=== PATIENT | male | born 1930 | race Caucasian/White ===

== ENCOUNTER 2020-02-08 19:53 | Observation (INO) | payer OTHER ==
--- NOTE | 2020-02-08 20:46 | RAD REPORT ---
EXAM DESCRIPTION: [place] Single View02/08/2020 8:41 pm CLINICAL HISTORY: cough COMPARISON: 2014 FINDINGS: The lungs appear clear of acute infiltrate. The heart is normal size IMPRESSION: No acute abnormalities displayed
[2020-02-08] MEDS ORDERED: NA CHLORIDE 0.9% 1,000 ML ONE (20:55)
[2020-02-08] MEDS ORDERED: AZITHROMYCIN 500 MG INJ IVPB ONE (20:55)
[2020-02-08] MEDS ORDERED: CEFTRIAXONE/SWI 1gm 1 GM/10 ML SYR ONE (20:55)
[2020-02-08] MEDS ORDERED: NA CHLORIDE 0.9% 250 ML ONE (20:55)
[2020-02-08 21:31] LABS: Absolute Lymphocytes (CBC) 2.3 K/uL (0.7-4.9); Basophils % 0.3 % (0-1.3); Hematocrit 51.9 % (39.6-49.0); Lymphocytes % 21.8 % (15.3-44.8); MPV 7.8 fL (7.6-11.3); RBC Red Blood Cell Count 5.74 M/uL (4.33-5.43)
[2020-02-08 21:33] LABS: Protime INR 2.04
[2020-02-08] MEDS ORDERED: METHYLPREDNISOLONE 125 MG INJ ONE (21:42)
[2020-02-08] MEDS ORDERED: METOPROLOL TAR 50 MG TAB ONE (21:43)
[2020-02-08] MEDS ORDERED: MORPHINE 2 MG/ML SYR ONE (21:43)
[2020-02-08] MEDS ORDERED: ONDANSETRON 4 MG/2 ML VIAL ONE (21:43)
[2020-02-08] MEDS ORDERED: FAMOTIDINE 20 MG/2 ML VIAL IV ONE (21:44)
[2020-02-08 21:45] LABS: ALT/SGPT 25 U/L (12-78); AST/SGOT 31 U/L (15-37); Albumin 3.9 g/dL (3.4-5.0); Alkaline Phosphatase 42 U/L (45-117); BUN Blood Urea Nitrogen 18 mg/dL (7-18); Bicarbonate 25 mmol/L (21-32); Bilirubin Direct 0.1 mg/dL (0-0.2); Bilirubin Total 0.5 mg/dL (0.2-1.0); Glucose Level 126 mg/dL (74-106); Lipase 207 U/L (73-393); Magnesium 2.3 mg/dL (1.8-2.4); NT PRO-BNP 436 pg/mL (<450); Protein, Total 8.5 g/dL (6.4-8.2); Sodium Level 139 mmol/L (136-145); Troponin (Emerg Dept Use Only) < 0.02 ng/mL (0.0-0.045)
[2020-02-08] MEDS ORDERED: ALBUTEROL INHALER 60 PUFF/8 GM IH ONE (21:46)
--- NOTE | 2020-02-08 22:19 | ER ---
Nurse's Notes [facility] Name: Khai Posada Age: 89 yrs Sex: Male : 1930 Arrival Date: 02/08/2020 Time: 19:56 Bed 7 Private MD: Hernan Merino V Diagnosis: Dyspnea;Other chest pain;Atrial fibrillation and flutter;Acute upper respiratory infection, unspecified;Fever, unspecified;Cholelithiasis Presentation: 02/07 20:00 Chief complaint: Patient states: I have been having cold sweats, cough and congestion jb4 with yellow mucus coming up, and chest discomfort for the past several days. Today it felt like my A-Fib started acting up again. I wanted to come in though to see if my lungs were okay. My had the same thing and she is just now getting over it. 20:00 Coronavirus screen: Patient reports a subjective fever or greater than 100.4F, or jb4 cough, or shortness of breath, or difficulty breathing. Surgical mask placed on patient. Patient moved to private room, placed in contact and droplet isolation with eye protection until further assessment. Patient denies travel on a cruise ship or to a country the [facility] currently lists as an affected area. Patient denies contact with known and/or suspected case of COVID-19. Infection Prevention Nurse has been notified of patient in isolation for probable COVID-19. Ebola Screen: No symptoms or risks identified at this time. Initial Sepsis Screen: Does the patient meet any 2 criteria? No. Patient's initial sepsis screen is negative. Does the patient have a suspected source of infection? Yes: Productive cough/pneumonia. Risk Assessment: Do you want to hurt yourself or someone else? Patient reports no desire to harm self or others. 20:00 Method Of Arrival: Wheelchair jb4 20:00 Acuity: BLANCA 3 jb4 Historical: - Allergies: 20:00 NKDA; jb4 - Home Meds: 20:00 Xarelto oral oral [Active]; Crestor oral oral [Active]; jb4 - PMHx: 20:00 seasonal allergies; High Cholesterol; Atrial Fib; jb4 - PSHx: 20:00 Cardiac ablasion; jb4 - Immunization history:: Adult Immunizations up to date. - Social history:: Smoking status: Patient denies any tobacco usage or history of. Patient/guardian denies using alcohol, street drugs, Smoking status: Patient denies any tobacco usage or history of. - Family history:: not pertinent. Screenin:25 Abuse screen: Denies threats or abuse. Denies injuries from another. Nutritional rv screening: No deficits noted. Tuberculosis screening: No symptoms or risk factors identified. Fall Risk None identified. Assessment: 20:23 General: Appears in no apparent distress. comfortable, Behavior is calm, cooperative. rv Pain: Complains of pain in chest. Neuro: Level of Consciousness is awake, alert, obeys commands, Oriented to person, place, time, situation. Cardiovascular: Patient's skin is warm and dry. Rhythm is atrial fibrillation. Respiratory: Airway is patent Breath sounds are coarse bilaterally. in left posterior lower lobe, right posterior middle lobe and right posterior lower lobe. GI: Abdomen is flat. : No signs and/or symptoms were reported regarding the genitourinary system. EENT: No signs and/or symptoms were reported regarding the EENT system. Derm: Skin is intact. Musculoskeletal: No signs and/or symptoms reported regarding the musculoskeletal system. 21:30 Reassessment: Patient appears in no apparent distress at this time. Patient and/or jb4 family updated on plan of care and expected duration. Pain level reassessed. Patient is alert, oriented x 3, equal unlabored respirations, skin warm/dry/pink. 22:00 Reassessment: Patient appears in no apparent distress at this time. Patient and/or jb4 family updated on plan of care and expected duration. Pain level reassessed. Patient is alert, oriented x 3, equal unlabored respirations, skin warm/dry/pink. Respiratory: Airway is patent Respiratory effort is even, unlabored, Respiratory pattern is regular, symmetrical, Breath sounds are diminished bilaterally. Breath sounds with wheezes bilaterally. Vital Signs: 20:00 BP 155 / 106; Pulse 76; Resp 16; Temp 97.8(O); Pulse Ox 98% on R/A; Weight 90.72 kg jb4 (R); Height 5 ft. 8 in. (172.72 cm) (R); Pain 2/10; 21:15 BP 134 / 73; Pulse 72; Resp 12; Pulse Ox 97% on R/A; rv 21:30 BP 127 / 82; Pulse 72; Resp 14; Pulse Ox 96% on R/A; rv 21:45 BP 143 / 75; Pulse 62; Resp 25; Pulse Ox 97% on R/A; rv 22:00 BP 147 / 72; Pulse 70; Resp 19; Pulse Ox 98% on R/A; rv 22:00 Temp 97.5(O); jb4 20:00 Body Mass Index 30.41 (90.72 kg, 172.72 cm) jb4 ED Course: 19:56 Patient arrived in ED. es 19:56 Hernan Merino MD is Private Physician. es 20:04 Jayro Booker, IGNACIO is Primary Nurse. rv 20:08 Doroteo Dunbar MD is Attending Physician. rama 20:24 Triage completed. jb4 20:26 Arm band placed on right wrist. EKG completed in triage. Results shown to MD. rv 20:26 Patient has correct armband on for positive identification. Placed in gown. Bed in low rv position. Call light in reach. Side rails up X 1. campus monitor on. Pulse ox on. NIBP on. 20:41 XRAY Chest (1 view) In Process Unspecified. EDMS 21:10 Inserted saline lock: 20 gauge in left forearm, using aseptic technique. Blood ds4 collected. Missed attempt(s): 22 gauge in right antecubital area. Bleeding controlled, band aid applied, catheter tip intact. 21:39 Blood Culture Adult (2) Sent. ds4 21:40 Basic Metabolic Panel Sent. ds4 21:40 LFT's Sent. ds4 21:40 Magnesium Sent. ds4 21:40 NT PRO-BNP Sent. ds4 21:40 Troponin (emerg Dept Use Only) Sent. ds4 22:16 Hernan Merino MD is Hospitalizing Provider. rama 22:19 US Abdomen Limited In Process Unspecified. EDMS 22:22 Ultrasound completed. Patient tolerated well. Notified ED Physician . sg3 22:56 Unruly Coppola, RN is Primary Nurse. jb4 02/08 12:05 Health Dept notified COVID test sent to lab/ PUI # [id number]/ lab notified. eb Administered Medications: 02/07 20:24 CANCELLED (Duplicate Order): Aspirin 81 mg PO once rama 21:10 Drug: NS 0.9% 500 ml Route: IV; Rate: bolus; Site: right antecubital; jb4 21:11 Drug: Rocephin 1 grams Route: IV; Rate: per protocol; Site: right antecubital; jb4 21:14 Follow up: IV Status: Completed infusion; IV Intake: 10ml jb4 21:15 Drug: Zithromax 500 mg Route: IVPB; Infused Over: 1 hrs; Site: right antecubital; jb4 21:46 Not Given (Physician Discretion): AtroVENT Aerosol 0.5 mg Inhalation once jb4 21:47 Not Given (Physician Discretion): Xopenex 2.5 mg Inhalation once jb4 21:57 Drug: Lopressor (metoprolol TARTRATE) 50 mg Route: PO; jb4 21:57 Drug: Pepcid 20 mg Route: IVP; Site: right antecubital; jb4 21:58 Drug: NS 0.9% 1000 ml Route: IV; Rate: 125 ml/hr; Site: right antecubital; jb4 21:58 Drug: SOLU-Medrol 125 mg Route: IVP; Site: right antecubital; jb4 22:00 Drug: Albuterol HFA Inhaler 2 puffs Route: Inhalation; jb4 22:03 Not Given (Patient Refused): morphine 2 mg IVP once; RASS on ADMIN: Combtv4, Very jb4 Agttd3, Agttd2, Rstlss1, AlertClm0, Drwsy-1, Lt Sdtn-2, Mod Sdtn-3, Dp Sdtn-4, UnArsble-5 22:03 Not Given (Patient Refused): Zofran (Ondansetron) 4 mg IVP once; over 2 minutes jb4 Intake: 21:14 IV: 10ml; Total: 10ml. jb4 Outcome: 22:18 Decision to Hospitalize [facility] 23:26 Patient left the ED. mw2 Signatures: Dispatcher [employer] Doroteo Decker MD MD cha Salyer, Edna es Swanson, Donovan ds4 Unruly Coppola, RN RN jb4 Abby Fitzgerald3 Suman Ansari mw2 Jane Ward Ronaldo RN RN rv
--- NOTE | 2020-02-08 22:20 | EDPHYS ---
Physician Documentation [facility] Name: Khai Posada Age: 89 yrs Sex: Male : 1930 Arrival Date: 02/08/2020 Time: 19:56 Bed 7 Private MD: Hernan Merino V ED Physician Doroteo Dunbar HPI: 02/07 20:25 This 89 yrs old Male presents to ER via Wheelchair with complaints of Chest rama Congestion, Cold sweats. 20:25 The patient or guardian reports chest pain that is located primarily in the anterior rama chest wall. Onset: 3 day(s) ago. The patient or guardian reports cough, difficulty breathing, flu symptoms, arthralgias, low-grade fever, myalgias. Onset: The symptoms/episode began/occurred 3 day(s) ago. Modifying factors: The symptoms are alleviated by nothing. the symptoms are aggravated by activity. Severity of symptoms: At their worst the symptoms were mild, in the emergency department the symptoms are actually worse, mildly. Associated signs and symptoms: Pertinent positives: rhinorrhea. Modifying factors: The symptoms are alleviated by nothing, the symptoms are aggravated by nothing. Historical: - Allergies: 20:00 NKDA; jb4 - Home Meds: 20:00 Xarelto oral oral [Active]; Crestor oral oral [Active]; jb4 - PMHx: 20:00 seasonal allergies; High Cholesterol; Atrial Fib; jb4 - PSHx: 20:00 Cardiac ablasion; jb4 - Immunization history:: Adult Immunizations up to date. - Social history:: Smoking status: Patient denies any tobacco usage or history of. Patient/guardian denies using alcohol, street drugs, Smoking status: Patient denies any tobacco usage or history of. - Family history:: not pertinent. ROS: 20:25 Eyes: Negative for injury, pain, redness, and discharge, ENT: Negative for injury, rama pain, and discharge, Neck: Negative for injury, pain, and swelling, Cardiovascular: Negative for chest pain, palpitations, and edema, Abdomen/GI: Negative for abdominal pain, nausea, vomiting, diarrhea, and constipation, Back: Negative for injury and pain, : Negative for injury, bleeding, discharge, and swelling, MS/Extremity: Negative for injury and deformity, Skin: Negative for injury, rash, and discoloration, Neuro: Negative for headache, weakness, numbness, tingling, and seizure, Psych: Negative for depression, anxiety, suicide ideation, homicidal ideation, and hallucinations, Allergy/Immunology: Negative for hives, rash, and allergies, Endocrine: Negative for neck swelling, polydipsia, polyuria, polyphagia, and marked weight changes, Hematologic/Lymphatic: Negative for swollen nodes, abnormal bleeding, and unusual bruising. 20:25 Constitutional: Positive for body aches, chills, fever, malaise. 20:25 Cardiovascular: Positive for chest pain, of the chest. 20:25 Respiratory: Positive for cough, wheezing, expiratory. Exam: 20:25 Constitutional: This is a well developed, well nourished patient who is awake, alert, rama and in no acute distress. Head/Face: Normocephalic, atraumatic. Eyes: Pupils equal round and reactive to light, extra-ocular motions intact. Lids and lashes normal. Conjunctiva and sclera are non-icteric and not injected. Cornea within normal limits. Periorbital areas with no swelling, redness, or edema. ENT: Nares patent. No nasal discharge, no septal abnormalities noted. Tympanic membranes are normal and external auditory canals are clear. Oropharynx with no redness, swelling, or masses, exudates, or evidence of obstruction, uvula midline. Mucous membranes moist. Neck: Trachea midline, no thyromegaly or masses palpated, and no cervical lymphadenopathy. Supple, full range of motion without nuchal rigidity, or vertebral point tenderness. No Meningismus. Chest/axilla: Normal chest wall appearance and motion. Nontender with no deformity. No lesions are appreciated. Abdomen/GI: Soft, non-tender, with normal bowel sounds. No distension or tympany. No guarding or rebound. No evidence of tenderness throughout. Back: No spinal tenderness. No costovertebral tenderness. Full range of motion. Male : Normal genitalia with no discharge or lesions. Skin: Warm, dry with normal turgor. Normal color with no rashes, no lesions, and no evidence of cellulitis. MS/ Extremity: Pulses equal, no cyanosis. Neurovascular intact. Full, normal range of motion. Neuro: Awake and alert, GCS 15, oriented to person, place, time, and situation. Cranial nerves II-XII grossly intact. Motor strength 5/5 in all extremities. Sensory grossly intact. Cerebellar exam normal. Normal gait. Psych: Awake, alert, with orientation to person, place and time. Behavior, mood, and affect are within normal limits. 20:25 Cardiovascular: Rate: normal, Rhythm: irregularly irregular, Pulses: Pulses are 4+ in bilateral radial, brachial, femoral, popliteal, posterior tibial and and dorsalis pedis arteries.. Heart sounds: normal, Edema: is not appreciated, JVD: is not appreciated. Vital Signs: 20:00 BP 155 / 106; Pulse 76; Resp 16; Temp 97.8(O); Pulse Ox 98% on R/A; Weight 90.72 kg jb4 (R); Height 5 ft. 8 in. (172.72 cm) (R); Pain 2/10; 21:15 BP 134 / 73; Pulse 72; Resp 12; Pulse Ox 97% on R/A; rv 21:30 BP 127 / 82; Pulse 72; Resp 14; Pulse Ox 96% on R/A; rv 21:45 BP 143 / 75; Pulse 62; Resp 25; Pulse Ox 97% on R/A; rv 22:00 BP 147 / 72; Pulse 70; Resp 19; Pulse Ox 98% on R/A; rv 22:00 Temp 97.5(O); jb4 20:00 Body Mass Index 30.41 (90.72 kg, 172.72 cm) jb4 MDM: 20:08 Patient medically screened. [facility] 20:27 Data reviewed: vital signs, nurses notes, lab test result(s), EKG, radiologic studies, rama plain films. 02/07 20:24 Order name: Basic Metabolic Panel; Complete Time: 22: [facility] 02/07 20:24 Order name: CBC with Diff; Complete Time: 22: [facility] 02/07 20:24 Order name: LFT's; Complete Time: 22: [facility] 02/07 20:24 Order name: Magnesium; Complete Time: 22: [facility] 02/07 20:24 Order name: NT PRO-BNP; Complete Time: 22: [facility] 02/07 20:24 Order name: PT-INR; Complete Time: 22: [facility] 02/07 20:24 Order name: Troponin (emerg Dept Use Only); Complete Time: 22: [facility] 02/07 20:24 Order name: XRAY Chest (1 view); Complete Time: 21: [facility] 02/07 20:24 Order name: Blood Culture Adult (2) [facility] 02/07 20:24 Order name: Influenza Screen (a \T\ B); Complete Time: 21: [facility] 02/07 20:24 Order name: Lipase; Complete Time: 22:09 [facility] 02/07 20:24 Order name: Lactate; Complete Time: 22: [facility] 02/07 20:24 Order name: Misc. Lab Test [facility] 02/07 21:26 Order name: US Abdomen Limited [facility] 02/07 20:24 Order name: EKG; Complete Time: 20: [facility] 02/07 20:24 Order name: Cardiac monitoring; Complete Time: : [facility] 02/07 20:24 Order name: EKG - Nurse/Tech; Complete Time: 21:33 [facility] 02/07 20:24 Order name: IV Saline Lock; Complete Time: : [facility] 02/07 20:24 Order name: Labs collected and sent; Complete Time: : [facility] 02/07 20:24 Order name: O2 Per Protocol; Complete Time: : [facility] 02/07 20:24 Order name: O2 Sat Monitoring; Complete Time: 21: [facility] 02/07 20:24 Order name: consult Order-Health dept [facility] Administered Medications: 20:24 CANCELLED (Duplicate Order): Aspirin 81 mg PO once [facility] 21:10 Drug: NS 0.9% 500 ml Route: IV; Rate: bolus; Site: right antecubital; jb4 21:11 Drug: Rocephin 1 grams Route: IV; Rate: per protocol; Site: right antecubital; jb4 21:14 Follow up: IV Status: Completed infusion; IV Intake: 10ml jb4 21:15 Drug: Zithromax 500 mg Route: IVPB; Infused Over: 1 hrs; Site: right antecubital; jb4 21:46 Not Given (Physician Discretion): AtroVENT Aerosol 0.5 mg Inhalation once jb4 21:47 Not Given (Physician Discretion): Xopenex 2.5 mg Inhalation once jb4 21:57 Drug: Lopressor (metoprolol TARTRATE) 50 mg Route: PO; jb4 21:57 Drug: Pepcid 20 mg Route: IVP; Site: right antecubital; jb4 21:58 Drug: NS 0.9% 1000 ml Route: IV; Rate: 125 ml/hr; Site: right antecubital; jb4 21:58 Drug: SOLU-Medrol 125 mg Route: IVP; Site: right antecubital; jb4 22:00 Drug: Albuterol HFA Inhaler 2 puffs Route: Inhalation; jb4 22:03 Not Given (Patient Refused): morphine 2 mg IVP once; RASS on ADMIN: Combtv4, Very jb4 Agttd3, Agttd2, Rstlss1, AlertClm0, Drwsy-1, Lt Sdtn-2, Mod Sdtn-3, Dp Sdtn-4, UnArsble-5 22:03 Not Given (Patient Refused): Zofran (Ondansetron) 4 mg IVP once; over 2 minutes jb4 Disposition: 02/08/20 22:18 Hospitalization ordered by Hernan Merino for Inpatient Admission. Preliminary diagnosis are Dyspnea, Other chest pain, Atrial fibrillation and flutter, Acute upper respiratory infection, unspecified, Fever, unspecified, Cholelithiasis. - Bed requested for Telemetry/MedSurg (Inpatient). - Status is Inpatient Admission. mw2 - Condition is Fair. - Problem is new. - Symptoms have improved. Signatures: Dispatcher [employer] EDMS Doroteo Dunbar MD MD cha Garcia, Cindy, RN RN Unruly Coppola RN RN jb4 Suman Ansari mw2 Jayro Booker RN RN rv Corrections: (The following items were deleted from the chart) 20:24 20:24 Aspirin 81 mg PO once ordered. rama rama 22:27 22:18 Hospitalization Ordered by Hernan Merino MD for Inpatient Admission. Preliminary rama diagnosis is Dyspnea; Other chest pain; Atrial fibrillation and flutter; Acute upper respiratory infection, unspecified; Fever, unspecified. Bed requested for Telemetry/MedSurg (Inpatient). Status is Inpatient Admission. Condition is Fair. Problem is new. Symptoms have improved. rama 22:39 22:27 02/08/2020 22:18 Hospitalization Ordered by Hernan Merino MD for Inpatient cg Admission. Preliminary diagnosis is Dyspnea; Other chest pain; Atrial fibrillation and flutter; Acute upper respiratory infection, unspecified; Fever, unspecified; Cholelithiasis. Bed requested for Telemetry/MedSurg (Inpatient). Status is Inpatient Admission. Condition is Fair. Problem is new. Symptoms have improved. rama 23:26 22:39 02/08/2020 22:18 Hospitalization Ordered by Hernan Merino MD for Inpatient mw2 Admission. Preliminary diagnosis is Dyspnea; Other chest pain; Atrial fibrillation and flutter; Acute upper respiratory infection, unspecified; Fever, unspecified; Cholelithiasis. Bed requested for Telemetry/MedSurg (Inpatient). Status is Inpatient Admission. Condition is Fair. Problem is new. Symptoms have improved. cg
[2020-02-08] MEDS ORDERED: ONDANSETRON 4 MG/2 ML VIAL IV PRN (23:44)
[2020-02-08] MEDS ORDERED: IPRATROPIUM BROM 0.5MG/2.5ML NEB PRN (23:44)
[2020-02-08] MEDS ORDERED: ACETAMINOPHEN 325 MG TABLET PO PRN (23:44)
[2020-02-08] MEDS ORDERED: ALBUTEROL 2.5 MG/3 ML NEB SOL NEB PRN (23:44)
[2020-02-08] MEDS ORDERED: MORPHINE 4 MG/ML SYR IV PRN (23:44)
[2020-02-09 03:48] LABS: Absolute Lymphocytes (CBC) 1.6 K/uL (0.7-4.9); Basophils % 0.3 % (0-1.3); Hematocrit 48.3 % (39.6-49.0); RBC Red Blood Cell Count 5.37 M/uL (4.33-5.43)
[2020-02-09 03:59] VITALS: BMI 30.3
[2020-02-09 04:07] LABS: Potassium 4.4 mmol/L (3.5-5.1)
[2020-02-09 04:19] LABS: Blood Morphology Comment NOT SEEN (NOT SEEN); Platelet Estimate ADEQ
[2020-02-09 07:41] VITALS: O2SAT 95
[2020-02-09] MEDS ORDERED: ALBUTEROL INHALER 60 PUFF/8 GM IH PRN (08:42)
--- NOTE | 2020-02-09 08:59 | EKG ---
Test Date: 2020-02-08 Test Time: 20:18:10 [place] Blank Handler: RV MEASUREMENT RESULTS: Intervals: Rate: 63 HI: QRSD: 86 QT: 534 QTc: 546 [place]: P: HI: QRS: -23 T: -39 INTERPRETIVE STATEMENTS: Atrial fibrillation Nonspecific T wave abnormality Abnormal ECG Compared to ECG 08/15/2013 00:45:34 T-wave abnormality now present Myocardial infarct finding no longer present Electronically Signed On 02-09-20 08:57:42 CDT by Hamilton Dobson
[2020-02-09] MEDS ORDERED: AZITHROMYCIN IV 250 MG in NA CHLORIDE 0.9% 250 ML IVPB SCH (09:00)
[2020-02-09] MEDS ORDERED: CEFTRIAXONE 1 GM/NS 50 ML 1 GM/50 ML BAG IV SCH (09:00)
[2020-02-09] MEDS ORDERED: CEFTRIAXONE/SWI 1gm 1 GM/10 ML SYR IVP SCH (09:00)
[2020-02-09] MEDS ORDERED: FAMOTIDINE 20 MG/2 ML VIAL IV SCH (09:00)
[2020-02-09] MEDS ORDERED: RIVAROXABAN 10 MG TABLET PO SCH (09:00)
--- NOTE | 2020-02-09 09:15 | RAD REPORT ---
EXAM DESCRIPTION: RAD - Chest Single View - 02/09/2020 6:31 am CLINICAL HISTORY: Chest Pain COMPARISON: AP chest February 07 TECHNIQUE: AP portable chest image was obtained 02/09/2020 6:31 am . FINDINGS: No new mass or infiltrate. No measurable failure or volume overload. Interstitial pattern matches comparison. Heart and vasculature are normal. No measurable pleural effusion and no pneumotho rax. No acute bony abnormality seen. No acute aortic findings suspected. IMPRESSION: No acute cardiopulmonary process. No new or progressive finding from prior day imaging.
--- NOTE | 2020-02-09 09:29 | RAD REPORT ---
EXAM DESCRIPTION: US - Abdomen Exam Limited - 02/08/2020 10:19 pm CLINICAL HISTORY: ABD PAIN COMPARISON: CT ABD PELVIS W WO CONTRAST dated 02/17/2014 FINDINGS: Gallbladder size is normal. Multiple variably sized gallstones There is no wall thickening or pericholecystic fluid. No common duct stone or biliary tree dilatation identified. Preliminary findings provided the time of the study. IMPRESSION: Multi stone cholelithiasis without additional findings of acute cholecystitis. No biliary tree abnormality.
--- NOTE | 2020-02-09 10:55 | P.HP ---
Certification for Inpatient Patient admitted to: Observation With expected LOS: <2 Midnights Practitioner: I am a practitioner with admitting privileges, knowledge of patient current condition, hospital course, and medical plan of care. Services: Services provided to patient in accordance with Admission requirements found in Title 42 Section 412.3 of the Code of Federal Regulations Patient History Date of Service: 02/09/20 Reason for admission: COUGH, YELLOW SPUTUM AND LOW GRADE FEVER. History of Present Illness: MR. WARREN IS AN A FIB PATIENT WHO HAS [facility]ACK CH[facility]ER IN [place], COMES WITH COUGH , YELLOW SPUTUM AND FEVER OF 100 DEGREE ONLY ONCE ABOUT 3 DAYS AGO. HE SAYS THE INFECTION MOVED OVER TO L CHEST SO HE CAME HERE. HE IS FEELING A 100% BETTER. WITH CDC CRITERIA ER ORDERED COVID TEST BUT THAT HAS NOT BEEN SENT OVER YET WITHOUT APPROVAL FROM THEM. I SUSPECT HE DOES NOT HAVE COVID 19 INFECTION. Allergies No Known Allergies Allergy (Verified 02/08/20 23:37) Home Medications: Rivaroxaban [Xarelto*] 20 mg PO DAILY 02/09/20 Rosuvastatin [Crestor*] 5 mg PO BEDTIME 02/09/20 - Past Medical/Surgical History Has patient received pneumonia vaccine in the past: Yes Diabetic: No -: Afib -: HLD -: seasonal allergies -: cardiac ablation - Social History Smoking Status: Never smoker Alcohol use: No CD- Drugs: No Caffeine use: Yes Place of Residence: Home Review of Systems 10-point ROS is otherwise unremarkable Physical Examination - Vital Signs Temperature: 96.8 F Blood Pressure: 121/63 Pulse: 52 Respirations: 18 Pulse Ox (%): 95 - Physical Exam General: Alert, In no apparent distress HEENT: Atraumatic, PERRLA, Mucous membr. moist/pink, EOMI, Sclerae nonicteric Neck: Supple, 2+ carotid pulse no bruit, No LAD, Without JVD or thyroid abnormality Respiratory: Clear to auscultation bilaterally, Normal air movement Cardiovascular: Regular rate/rhythm, Normal S1 S2 Gastrointestinal: Normal bowel sounds, No tenderness Musculoskeletal: No tenderness Integumentary: No rashes Neurological: Normal gait, Normal speech, Normal strength at 5/5 x4 extr, Normal tone, Normal affect Lymphatics: No axilla or inguinal lymphadenopathy - Studies Laboratory Data (last 24 hrs) 02/08/20 20:50: PT 23.7 H, INR 2.04 02/08/20 20:50: WBC 10.4, Hgb 17.1, Hct 51.9 H, Plt Count 226 02/08/20 20:50: Sodium 139, Potassium 4.0, BUN 18, Creatinine 1.34 H, Glucose 126 H, Magnesium 2.3, Total Bilirubin 0.5, AST 31, ALT 25, Alkaline Phosphatase 42 L, Lipase 207 Microbiology Data (last 24 hrs): 02/08/20 20:33 Nasopharnyx Influenza Type A Antigen Screen - Final 02/08/20 20:33 Nasopharnyx Influenza Type B Antigen Screen - Final Assessment and Plan - Problems (Diagnosis) (1) Acute bronchiolitis Current Visit: Yes Status: Acute Plan: MOST LIKELY BACTERIAL. HE FEELS GREAT NOW. IV LUIS ALBERTOHIJordan WORKED Qualifiers: Bronchiolitis organism: unspecified organism Qualified Code(s): J21.9 - Acute bronchiolitis, unspecified (2) A-fib Current Visit: Yes Status: Chronic Qualifiers: Atrial fibrillation type: longstanding persistent Qualified Code(s): I48.11 - Longstanding persistent atrial fibrillation (3) Sinus pause Current Visit: Yes Status: Acute Plan: I WAS CALLED LAST NIGHT ABOUT THIS. HE HAD 3 SECOND PAUSE BUT WAS NOT SYMPTOMATIC. HE WILL FU WITH PACK CHANGER. - Advance Directives Does patient have a Living Will: No Does patient have a Durable POA for Healthcare: No
[2020-02-09 11:25] VITALS: BP 90/57; TEMP 97.2
--- NOTE | 2020-02-09 15:02 | P.DS ---
Admission Date: 02/08/20 Discharge Date: 02/09/20 Disposition: ROUTINE DISCHARGE Discharge Condition: FAIR Reason for Admission: COUGH, YELLOW SPUTUM AND LOW GRADE FEVER. - Problems (1) Acute bronchiolitis Current Visit: Yes Status: Acute Qualifiers: Bronchiolitis organism: unspecified organism Qualified Code(s): J21.9 - Acute bronchiolitis, unspecified (2) A-fib Current Visit: Yes Status: Chronic Qualifiers: Atrial fibrillation type: longstanding persistent Qualified Code(s): I48.11 - Longstanding persistent atrial fibrillation (3) Sinus pause Current Visit: Yes Status: Acute Brief History of Present Illness: MR. WARREN IS AN A FIB PATIENT WHO HAS [employer] IN [employer], COMES WITH COUGH , YELLOW SPUTUM AND FEVER OF 100 DEGREE ONLY ONCE ABOUT 3 DAYS AGO. HE SAYS THE INFECTION MOVED OVER TO L CHEST SO HE CAME HERE. HE IS FEELING A 100% BETTER. WITH [facility] CRITERIA ER ORDERED COVID TEST BUT THAT HAS NOT BEEN SENT OVER YET WITHOUT APPROVAL FROM THEM. I SUSPECT HE DOES NOT HAVE COVID 19 INFECTION. Hospital Course: Mr. Warren is feeling great. He has no syncope like symptoms. His COvid result will be back tomorrow. I suspect he will be negative. His BP at discharge is 110 systolic per Virgilio PIERRE. He has no symptoms and will go home today. Vital Signs/Physical Exam: Temp Pulse Resp BP Pulse Ox 97.2 F 59 18 90/57 L 95 02/09/20 11:24 02/09/20 11:24 02/09/20 11:24 02/09/20 11:24 02/09/20 11:24 Laboratory Data at Discharge: WBC 13.0 K/uL (4.3-10.9) H D 02/09/20 03:37 Hgb 15.8 g/dL (13.6-17.9) 02/09/20 03:37 Hct 48.3 % (39.6-49.0) 02/09/20 03:37 Plt Count 246 K/uL (152-406) 02/09/20 03:37 PT 23.7 SECONDS (9.5-12.5) H 02/08/20 20:50 INR 2.04 02/08/20 20:50 Sodium 139 mmol/L (136-145) 02/09/20 03:37 Potassium 4.4 mmol/L (3.5-5.1) 02/09/20 03:37 BUN 19 mg/dL (7-18) H 02/09/20 03:37 Creatinine 1.21 mg/dL (0.55-1.3) 02/09/20 03:37 Glucose 139 mg/dL (74-106) H 02/09/20 03:37 Magnesium 2.3 mg/dL (1.8-2.4) 02/08/20 20:50 Total Bilirubin 0.5 mg/dL (0.2-1.0) 02/08/20 20:50 AST 31 U/L (15-37) 02/08/20 20:50 ALT 25 U/L (12-78) 02/08/20 20:50 Alkaline Phosphatase 42 U/L (45-117) L 02/08/20 20:50 Troponin I < 0.02 ng/mL (0.0-0.045) 02/09/20 03:37 Lipase 207 U/L (73-393) 02/08/20 20:50 Home Medications: Amox/Clavulanate [Augmentin 875-125 Tab] 1 each PO BID #14 tab 02/09/20 Rivaroxaban [Xarelto*] 20 mg PO DAILY 02/09/20 Rosuvastatin [Crestor*] 5 mg PO BEDTIME 02/09/20 New Medications: Amox/Clavulanate [Augmentin 875-125 Tab] 1 each PO BID #14 tab Followup: Hernan Merino MD [Primary Care Provider] -
[2020-02-09] MEDS ORDERED: ROSUVASTATIN 10 MG TAB PO SCH (21:00)
== END 2020-02-09 15:02 | disposition home or self-care (01) ==
LOC: ER 19:53 → ERHOLD 22:37 → INTOOBSV 22:37 → 4TH 23:06
PROVIDERS: ADMIT Internal Medicine; ATTEND Internal Medicine
DX: J21.9 Acute bronchiolitis, unspecified (principal); I48.11 Longstanding persistent atrial fibrillation; I49.8 Other specified cardiac arrhythmias; Z03.818 Encounter for observation for suspected exposure to other biological agents ruled out; K80.20 Calculus of gallbladder without cholecystitis without obstruction; E78.00 Pure hypercholesterolemia, unspecified; Z79.01 Long term (current) use of anticoagulants; Z79.899 Other long term (current) drug therapy
CPT/HCPCS: 93005; 87040 ×2; 85025 ×2; 80048 ×2; 36415; 83735; 85610; 80076; 83605; 84484 ×3; 83690; 83880 ×2; 87804 ×2; 71045 ×2; 76705; 94760; 96375; 96374; 99285; U0001; J0456 ×2; J0696 ×2; J7030 ×3; J2930; J2405; G0378 ×2; J2270